=== PATIENT | female | born 1985 | race Asian ===

== ENCOUNTER 2022-06-12 19:55 | Emergency (ER) | payer BC, SELFPAY ==
--- NOTE | ~2022-06-12 | US_ITS ---
EXAMINATION: US OBSTETRICAL ULTRASOUND CLINICAL INFORMATION: Twin . Vaginal bleeding. COMPARISON: None available. LMP: 03/27/2022. Gestational age by maternal dates is 11 weeks. Estimated date of delivery by maternal dates is 01/01/2023. TECHNIQUE: Real time transabdominal imaging with M-mode Doppler. FINDINGS: There is a myometrial lesion with heterogeneous internal echogenicity along the uterine fundus, measuring 7.8 x 6.8 x 8 cm. This lesion appears associated with an additional exophytic, pedunculated component arising from the uterine fundus, measuring approximately 5.4 x 4.2 cm. There is a twin appears to be dichorionic and diamnionic. Twin A: Intrauterine gestational sac with visible embryo/fetus and cardiac activity. No overtly demonstrated significant subchorionic hemorrhage or hematoma. HR: 167 beats per minute. CRL (crown rump length): 4.16 cm (11 weeks and 1 day +/- 4 days). SUZANNE (estimated date of delivery): 12/31/2022 +/- 4 days. Twin B: Intrauterine gestational sac with visible embryo/fetus and cardiac activity. There is no significant subchorionic hemorrhage or hematoma. HR: 172 beats per minute. CRL (crown rump length): 3.61 cm (10 weeks and 4 days +/- 4 days). SUZANNE (estimated date of delivery): 01/04/2023 +/- 4 days. MATERNAL ADNEXA: The right maternal ovary measures 1.7 x 1.6 x 2 cm. No demonstrated abnormalities. The left maternal ovary measures 2.6 x 1.9 x 1.4 cm. There is a 1.5 cm corpus luteal cyst associated with the left ovary. No demonstrated additional significant maternal adnexal mass. No maternal pelvic ascites. US/US OB <= 14 wk fetus add gest IMPRESSION: 1. Twin intrauterine gestation with cardiac activity. Twin A: Ultrasound gestational age of 11 weeks and 1 day +/- 4 days. Estimated date of delivery 12/31/2022 +/- 4 days. Twin B: Ultrasound gestational age of 10 weeks and 4 days +/- 4 days. Estimated date of delivery 01/04/2023 +/- 4 days. 2. No overt subchorionic hemorrhage/hematoma. 3. There is a prominent myometrial lesion with heterogeneous internal echogenicity along the uterine fundus, measuring up to 8 cm. There is an additional exophytic, pedunculated component of this lesion measuring an additional 5.4 cm. This appearance is suggestive of underlying fibroid. 4. No demonstrated maternal adnexal mass or pelvic ascites.
--- NOTE | ~2022-06-12 | US_ITS ---
EXAMINATION: US OBSTETRICAL ULTRASOUND CLINICAL INFORMATION: Twin . Vaginal bleeding. COMPARISON: None available. LMP: 03/27/2022. Gestational age by maternal dates is 11 weeks. Estimated date of delivery by maternal dates is 01/01/2023. TECHNIQUE: Real time transabdominal imaging with M-mode Doppler. FINDINGS: There is a myometrial lesion with heterogeneous internal echogenicity along the uterine fundus, measuring 7.8 x 6.8 x 8 cm. This lesion appears associated with an additional exophytic, pedunculated component arising from the uterine fundus, measuring approximately 5.4 x 4.2 cm. There is a twin appears to be dichorionic and diamnionic. Twin A: Intrauterine gestational sac with visible embryo/fetus and cardiac activity. No overtly demonstrated significant subchorionic hemorrhage or hematoma. HR: 167 beats per minute. CRL (crown rump length): 4.16 cm (11 weeks and 1 day +/- 4 days). SUZANNE (estimated date of delivery): 12/31/2022 +/- 4 days. Twin B: Intrauterine gestational sac with visible embryo/fetus and cardiac activity. There is no significant subchorionic hemorrhage or hematoma. HR: 172 beats per minute. CRL (crown rump length): 3.61 cm (10 weeks and 4 days +/- 4 days). SUZANNE (estimated date of delivery): 01/04/2023 +/- 4 days. MATERNAL ADNEXA: The right maternal ovary measures 1.7 x 1.6 x 2 cm. No demonstrated abnormalities. The left maternal ovary measures 2.6 x 1.9 x 1.4 cm. There is a 1.5 cm corpus luteal cyst associated with the left ovary. No demonstrated additional significant maternal adnexal mass. No maternal pelvic ascites. US/US OB pelvic and transvaginal IMPRESSION: 1. Twin intrauterine gestation with cardiac activity. Twin A: Ultrasound gestational age of 11 weeks and 1 day +/- 4 days. Estimated date of delivery 12/31/2022 +/- 4 days. Twin B: Ultrasound gestational age of 10 weeks and 4 days +/- 4 days. Estimated date of delivery 01/04/2023 +/- 4 days. 2. No overt subchorionic hemorrhage/hematoma. 3. There is a prominent myometrial lesion with heterogeneous internal echogenicity along the uterine fundus, measuring up to 8 cm. There is an additional exophytic, pedunculated component of this lesion measuring an additional 5.4 cm. This appearance is suggestive of underlying fibroid. 4. No demonstrated maternal adnexal mass or pelvic ascites.
[2022-06-12 20:12] VITALS: BP 105/67; PULSE 85; RESP 16; TEMP 36.6; O2SAT 98; BMI 18.5
[2022-06-12 21:27] LABS: Appearance Urine Cloudy; Color Urine Yellow; Glucose Urine UA Negative (Negative); Leukocyte Esterase Urine Negative (Negative); Nitrite Urine Negative (Negative); Specific Gravity - Urine 1.025 (1.005-1.025); UMIC TRIGGER UACC YES; Urine Blood Moderate (2+) (Negative); Urine Ketones Negative (Negative); Urine Protein Trace mg/dL (Neg-Trace)
[2022-06-12 21:28] LABS: UPreg QC Valid YES; Urine Pregnancy POSITIVE (NEGATIVE)
[2022-06-12 21:40] LABS: Bacteria Urine 1+ (None Seen); Hyaline Casts Urine 0-2 /LPF (0-2); RBC Urine 0-2 /HPF (0-2); WBC Urine 0-5 /HPF (0-5)
--- NOTE | 2022-06-12 21:53 | ED_ITS ---
HPI - Female Genitourinary General Chief complaint: Urogenital-Female Stated complaint: 9 wks vaginal bleeding Time Seen by Provider: 06/12/22 21:40 Source: patient Mode of arrival: ambulatory Limitations: no limitations History of Present Illness HPI Narrative: Patient is a at approximately 9 weeks of gestational age by last menstrual period. Patient states that she believes she is approximately at 9 weeks based on her last menstrual period, states that she does not have any abdominal pain but is concerned that she has been seeing vaginal bleeding since yesterday. It started out as spotting and today got a bit heavier. Patient denies any abdominal cramping. Related Data Allergies Allergy/AdvReac Type Severity Reaction Status Date / Time No Known Allergies Allergy Verified 06/12/22 20:12 Review of Systems Review of Systems: Constitutional : No Weight loss, No Fever, No Chills, No Night Sweats, No Fatigue, No Malaise ENT/Mouth : No Hearing loss, No Ear Pain, No Nasal Congestion, No Sinus Pain, No Hoarseness, No sore throat, No Rhinorrhea, No Swallowing Difficulty Eyes: No Eye Pain, No Swelling, No Redness, No Foreign Body, No Discharge, No Vision Changes Cardiovascular : No Chest Pain, No SOB, No Dyspnea on Exertion, No Orthopnea, No Edema, No Palpitations Respiratory : No Cough, No Sputum, No Wheezing, No Smoke Exposure, No Dyspnea Gastrointestinal : No Nausea, No Vomiting, No Diarrhea, No Constipation, No abdominal Pain, No Hematochezia, No Melena Genitourinary : Complaining of vaginal bleeding, 9 weeks of gestational age per last menstrual period, No Dysuria, No Urinary Frequency, No Hematuria, No Urinary Incontinence, No Urgency, No Flank Pain, No Urinary Flow Changes, No Hesitancy Musculoskeletal : No joint pain, No Myalgias, No Joint Swelling Skin : No Skin Lesions, No rash Neuro : No Weakness, No Numbness, No Paresthesias, No Loss of Consciousness, No Dizziness, No Headache Psych : No Anxiety/Panic, No Depression, No SI/HI/AH/VH, No Social Issues, Heme/Lymph: No Bruising, No Bleeding,No Lymphadenopathy Endocrine : No Polyuria, No Polydipsia, No Temperature Intolerance PMFSH Social History Social History Advance Directives: No Advance Directives Information Provided: No Physical Exam Vital Signs: Vital Signs: Last Vital Signs Temp 98 F 06/12/22 22:23 Pulse 69 06/12/22 22:23 Resp 19 06/12/22 22:23 BP 101/62 06/12/22 22:23 Pulse Ox 98 06/12/22 22:23 O2 Del Method 06/12/22 22:23 BMI result Body Mass Index 18.5 Const: Other: Appearance: Alert. Oriented X3. No acute distress. Eyes: Pupils equal, round and reactive to light. ENT: Pharynx normal. Neck: Normal inspection. Neck supple. No lymph nodes noted. No crepitus CVS: Normal heart rate and rhythm. Pulses normal. Normal S1 and S2 Respiratory: No respiratory distress. Breath sounds normal. No Wheezing. No ra les Abdomen: Soft and nontender. No rigidity. No distention. : Scant amount of vaginal bleeding, there is small amount of mucus protruding through the cervix Skin: Skin warm and dry. Normal skin color. Normal skin turgor. Extremities: No lower extremity edema. No Lacerations. No Rash Neuro: Oriented X 3. No motor deficit. No sensory deficit. Moving all extremities. No slurred speech. CN 2 through 12 grossly intact Psych: calm, cooperative, normal affect Course Course Course Narrative: -all of patient's labs and ultrasound pending. -patient declined Tylenol, states that she does not have any significant abdominal discomfort -patient's blood type is A negative, per ultrasound, twin a is 11 weeks +1 day, twin B is 10 weeks +4 days -patient received 1 dose of RhoGAM 300 mcg -cervix is approximately 3 mm and passing small amount of bloody mucus -I discussed with the patient that this is a threatened , the may either continue or it could also end up in a spontaneous . Patient aware. -patient has an appointment pending for next week with her OB Gyne. I will provide the patient with her lab work and ultrasound results Medications Administered Discontinued Medications Generic Name Dose Route Start Last Admin Trade Name Freq PRN Reason Stop Dose Admin Rho Immune Globulin 300 mcg 06/13/22 00:55 06/13/22 01:14 Rho(D) Immune Globulin 300 Mcg Syringe IM 06/13/22 00:56 300 mcg ONCE ONE Administration Medical Decision Making Medical Decision Making MDM Narrative: Twin , mother Rh negative, received RhoGAM Lab Data MDM Lab Attestation statement: I reviewed the patient's lab results. 06/12/22 22:04 06/12/22 22:04 Labs: Lab Results 06/12/22 06/12/22 06/12/22 Range/Units 21:17 21:19 21:19 WBC (4.8-10.8) X10*3/uL RBC (4.20-5.50) X10*6/uL Hgb (12.0-16.0) g/dl Hct (37.0-47.0) % MCV (80.0-98.0) fL MCH (27.0-33.0) pg MCHC (31.0-35.0) g/dl RDW (11.0-16.0) % Plt Count (160-400) X10*3/uL MPV (9.4-12.3) fL Immature Gran % (Auto) (0.0-0.4) % Neut % (Auto) (45-73) % Lymph % (Auto) (20-40) % Zavala % (Auto) (2-11) % Eos % (Auto) (0-4) % Baso % (Auto) (0-2) % Lymph # (Auto) (1.2-4.9) X10*3/uL Z[place]ala # (Auto) (0.1-1.2) X10*3/uL Eos # (Auto) (0.0-0.4) X10*3/uL Baso # (Auto) (0.0-0.2) X10*3/uL Abs Immat Gran (auto) (0.00-0.03) X10*3/uL Absolute Neuts (auto) (2.0-8.3) x10*3/uL Absolute Nucleated RBC (0.0-0.012) X10*3/uL Nucleated RBC % (auto) (0.0-0.2) /100WBC Smear Tech's Comments Sodium (135-145) mmol/L Potassium (3.3-5.1) mmol/L Chloride (96-108) mmol/L Carbon Dioxide (22-29) mmol/L Anion Gap (12-20) BUN (9-16) mg/dL Creatinine (0.5-1.4) mg/dL Estim Creat Clear Calc Estimated GFR Random Glucose (60-115) mg/dL Calcium (8.4-10.2) mg/dL Total Bilirubin (0.0-1.0) mg/dL Direct Bilirubin (0.0-0.5) mg/dL AST (5-31) U/L ALT (0-31) U/L Alkaline Phosphatase (39-117) U/L Total Protein (6.5-8.0) g/dL Albumin (3.5-5.0) g/dL Beta HCG, Quant 757580 mIU/mL Urine Color Yellow Urine Appearance Cloudy Urine pH 6.0 (5.0-9.0) Ur Specific [place] 1.025 (1.005-1.025) Urine Protein Trace (Neg-Trace) mg/dL Urine Glucose (UA) Negative (Negative) mg/dL Urine Ketones Negative (Negative) mg/dL Urine Blood Moderate (2+) H (Negative) Urine Nitrite Negative (Negative) Ur Leukocyte Esterase Negative (Negative) Urine RBC 0-2 (0-2) /HPF Urine WBC 0-5 (0-5) /HPF Ur Squamous Epith Cells 6-10 (0-2) /HPF Urine Bacteria 1+ (None Seen) Hyaline Casts 0-2 (0-2) /LPF Urine Test POSITIVE H (NEGATIVE) Blood Type 06/12/22 06/12/22 06/12/22 Range/Units 22:04 22:04 22:04 WBC 7.6 (4.8-10.8) X10*3/uL RBC 5.30 (4.20-5.50) X10*6/uL Hgb 10.2 L (12.0-16.0) g/dl Hct 31.9 L (37.0-47.0) % MCV 60.2 L (80.0-98.0) fL MCH 19.2 L (27.0-33.0) pg MCHC 32.0 (31.0-35.0) g/dl RDW 14.4 (11.0-16.0) % Plt Count 193 (160-400) X10*3/uL MPV 10.3 (9.4-12.3) fL Immature Gran % (Auto) 0.3 (0.0-0.4) % Neut % (Auto) 71.4 (45-73) % Lymph % (Auto) 21.9 (20-40) % Zavala % (Auto) 5.5 (2-11) % Eos % (Auto) 0.8 (0-4) % Baso % (Auto) 0.1 (0-2) % Lymph # (Auto) 1.7 (1.2-4.9) X10*3/uL Z[place]ala # (Auto) 0.4 (0.1-1.2) X10*3/uL Eos # (Auto) 0.1 (0.0-0.4) X10*3/uL Baso # (Auto) 0.0 (0.0-0.2) X10*3/uL Abs Immat Gran (auto) 0.02 (0.00-0.03) X10*3/uL Absolute Neuts (auto) 5.4 (2.0-8.3) x10*3/uL Absolute Nucleated RBC 0.000 (0.0-0.012) X10*3/uL Nucleated RBC % (auto) 0.0 (0.0-0.2) /100WBC Smear Tech's Comments VERIFIED Sodium 137 (135-145) mmol/L Potassium 4.7 (3.3-5.1) mmol/L Chloride 106 (96-108) mmol/L Carbon Dioxide 24 (22-29) mmol/L Anion Gap 12 (12-20) BUN 12 (9-16) mg/dL Creatinine 0.55 (0.5-1.4) mg/dL Estim Creat Clear Calc 106.2 Estimated GFR > 60 Random Glucose 86 (60-115) mg/dL Calcium 9.1 (8.4-10.2) mg/dL Total Bilirubin 0.5 (0.0-1.0) mg/dL Direct Bilirubin 0.2 (0.0-0.5) mg/dL AST 17 (5-31) U/L ALT 13 (0-31) U/L Alkaline Phosphatase 52 (39-117) U/L Total Protein 6.8 (6.5-8.0) g/dL Albumin 3.9 (3.5-5.0) g/dL Beta HCG, Quant mIU/mL Urine Color Urine Appearance Urine pH (5.0-9.0) Ur Specific [place] (1.005-1.025) Urine Protein (Neg-Trace) mg/dL Urine Glucose (UA) (Negative) mg/dL Urine Ketones (Negative) mg/dL Urine Blood (Negative) Urine Nitrite (Negative) Ur Leukocyte Esterase (Negative) Urine RBC (0-2) /HPF Urine WBC (0-5) /HPF Ur Squamous Epith Cells (0-2) /HPF Urine Bacteria (None Seen) Hyaline Casts (0-2) /LPF Urine Test (NEGATIVE) Blood Type A Negative Independent Interpretation I performed an independent interpretation of an: Ultrasound (Intrauterine , Twins) Radiology Impression Discussion of test interpretation with radiology: I have reviewed the radiologist's reading. Radiologist Impression: CLINICAL INFORMATION:? Twin . Vaginal bleeding. COMPARISON:? None available.? LMP: 03/27/2022. Gestational age by maternal dates is 11 weeks. Estimated date of delivery by maternal dates is 01/01/2023. TECHNIQUE: Real time transabdominal imaging with M-mode Doppler. ? FINDINGS: There is a myometrial lesion with heterogeneous internal echogenicity along the uterine fundus, measuring 7.8 x 6.8 x 8 cm. This lesion appears associated with an additional exophytic, pedunculated component arising from the uterine fundus, measuring approximately 5.4 x 4.2 cm. There is a twin appears to be dichorionic and diamnionic. Twin A: Intrauterine gestational sac with visible embryo/fetus and cardiac activity. No overtly demonstrated significant subchorionic hemorrhage or hematoma. HR:? 167 beats per minute. CRL (crown rump length): ? 4.16 cm (11 weeks and 1 day +/- 4 days). SUZANNE (estimated date of delivery):? 12/31/2022 +/- 4 days. ? Twin B: Intrauterine gestational sac with visible embryo/fetus and cardiac activity.? There is no significant subchorionic hemorrhage or hematoma. HR:? 172 beats per minute. CRL (crown rump length): ? 3.61 cm (10 weeks and 4 days +/- 4 days). SUZANNE (estimated date of delivery):? 01/04/2023 +/- 4 days. ? MATERNAL ADNEXA:? The right maternal ovary measures 1.7 x 1.6 x 2 cm.? No demonstrated abnormalities. The left maternal ovary measures 2.6 x 1.9 x 1.4 cm.? There is a 1.5 cm corpus luteal cyst associated with the left ovary. No demonstrated additional significant maternal adnexal mass.? No maternal pelvic ascites. US/US OB pelvic and transvaginal IMPRESSION: 1. Twin intrauterine gestation with cardiac activity. Twin A: Ultrasound gestational age of? 11 weeks and 1 day +/- 4 days. Estimated date of delivery 12/31/2022 +/- 4 days. Twin B: Ultrasound gestational age of 10 weeks and 4 days +/- 4 days. Estimated date of delivery 01/04/2023 +/- 4 days. ? 2. No overt subchorionic hemorrhage/hematoma. ? 3. There is a prominent myometrial lesion with heterogeneous internal echogenicity along the uterine fundus, measuring up to 8 cm. There is an additional exophytic, pedunculated component of this lesion measuring an additional 5.4 cm. This appearance is suggestive of underlying fibroid. ? 4. No demonstrated maternal adnexal mass or pelvic ascites. Discharge Plan Discharge Clinical Impression: Vaginal bleeding during Patient Disposition: Home, Self-Care Instructions: Threatened Miscarriage (ED) Additional Instructions: If you have any significant vaginal bleeding or abdominal pain, please return immediately to the emergency room. 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 If you have any worsening or new symptoms, please return to the emergency room or call 911
[2022-06-12 22:13] LABS: Basophils Percent Auto 0.1 % (0-2); Eosinophils Absolute Auto 0.1 X10*3/uL (0.0-0.4); Eosinophils Percent Auto 0.8 % (0-4); Hematocrit 31.9 % (37.0-47.0); Hemoglobin 10.2 g/dl (12.0-16.0); Imm Gran Abs Auto 0.02 X10*3/uL (0.00-0.03); Imm Gran Pct Auto 0.3 % (0.0-0.4); Lymphocytes Absolute Auto 1.7 X10*3/uL (1.2-4.9); Lymphocytes Percent Auto 21.9 % (20-40); Mean Corpuscular Hemoglobin 19.2 pg (27.0-33.0); Mean Platelet Volume 10.3 fL (9.4-12.3); Monocytes Absolute Auto 0.4 X10*3/uL (0.1-1.2); Monocytes Percent Auto 5.5 % (2-11); Neutrophils Absolute Auto 5.4 x10*3/uL (2.0-8.3); Neutrophils Percent Auto 71.4 % (45-73); Platelet Count 193 X10*3/uL (160-400); Red Cell Distribution Width 14.4 % (11.0-16.0); White Blood Count 7.6 X10*3/uL (4.8-10.8)
[2022-06-12 22:23] VITALS: BP 101/62; PULSE 69; RESP 19; TEMP 36.6; O2SAT 98
[2022-06-12 22:34] LABS: Mean Corpuscular Volume 60.2 fL (80.0-98.0)
[2022-06-12 22:35] LABS: MANUAL DIFF FLAG SCAN; SCAN SMEAR FLAG 1; SLIDE REVIEW VERIFIED
[2022-06-12 22:36] LABS: Alanine Aminotransferase 13 U/L (0-31); Albumin Level 3.9 g/dL (3.5-5.0); Alkaline Phosphatase 52 U/L (39-117); Anion Gap 12 (12-20); Aspartate Amino Transferase 17 U/L (5-31); Bilirubin Direct 0.2 mg/dL (0.0-0.5); Bilirubin Total 0.5 mg/dL (0.0-1.0); Blood Urea Nitrogen 12 mg/dL (9-16); Calcium 9.1 mg/dL (8.4-10.2); Carbon Dioxide 24 mmol/L (22-29); Chloride 106 mmol/L (96-108); Creatinine Clr Calc Pharmacy 106.2; Estimated Glomerular Filt Rate > 60; Glucose Random 86 mg/dL (60-115); Potassium 4.7 mmol/L (3.3-5.1); Sodium 137 mmol/L (135-145); Total Protein 6.8 g/dL (6.5-8.0)
[2022-06-13] MEDS: Rho(D) Immune Globulin 300 MCG SYRINGE IM (01:14)
--- NOTE | 2022-06-13 02:12 | PC.NURSE ---
Pt. resting on bed in room. Pt denies any discomfort. Significant other is at bedside. Pelvic exam performed by . Pt. is RH negative. Rhogam administered per JUL. Pt. given labs and paperwork to follow-up with her OB with whom she has an appointment on 06/19/2022.
== END 2022-06-13 02:21 | disposition home or self-care (01) ==
PROVIDERS: Emergency Provider Emergency Medicine; PCP Family Medicine
DX: O20.9 Hemorrhage in early pregnancy, unspecified (principal); Z3A.11 11 weeks gestation of pregnancy; Z37.2 Twins, both liveborn; O09.521 Supervision of elderly multigravida, first trimester
CPT/HCPCS: 36415; 76801; 76802; 76817; 80048; 80076; 81001; 81025; 84702; 85025; 86900; 86901; 96372; 99283; 99284; J2790

== ENCOUNTER 2023-04-26 12:06 | Emergency (ER) | payer BC, SELFPAY ==
--- NOTE | 2023-04-26 | ECG_ITS ---
Test Reason : CP Blood Pressure : / mmHG Vent. Rate : 111 BPM Atrial Rate : 111 BPM P-R Int : 166 ms QRS Dur : 070 ms QT Int : 314 ms P-R-T Axes : 037 029 010 degrees QTc Int : 427 ms Sinus tachycardia Possible Left atrial enlargement Borderline ECG No previous ECGs available Referred By: Generic ED Physician Electronically Signed By:SWETHA DAWKINS MD
[2023-04-26 12:29] VITALS: BP 124/84; PULSE 111; RESP 16; TEMP 37.1; O2SAT 99; BMI 25.4
--- NOTE | 2023-04-26 12:35 | ED.CHESTPAIN ---
HPI - Chest Pain General Chief Complaint: Chest Pain Stated Complaint: chest pain Time Seen by Provider: 04/26/23 16:57 Source: patient Mode of arrival: ambulatory History of Present Illness HPI narrative: Pt is a 37yo female who is presenting to the ED for chest pain. Pt states the pain originated in her lower abdomen and radiated up her mid-chest. She states it started at 9:30 and lasted about an hour before spontaneously resolving. She notes that now she has general body aches, chills, lightheadedness, and nausea. She denies dysuria, vomiting or diarrhea, or difficulty breathing. She states she did have some palpitations while she was experiencing the chest pain. Notes a hx of uterine fibroids and pregnancies with similar sx. Related Data Allergies Allergy/AdvReac Type Severity Reaction Status Date / Time No Known Allergies Allergy Verified 04/26/23 12:29 Review of Systems Constitutional: Constitutional: Reports body ache(s), Reports chills, Denies fever(s) and Reports headache(s) (dull) Eyes: Eyes: Denies change in vision and Denies diplopia ENT: Reports dizziness and Reports headache(s) (dull) Cardiovascular: Cardiovascular: Reports chest pain and Denies dyspnea Respiratory: Respiratory: Denies cough and Denies dyspnea Gastrointestinal: Gastrointestinal: Reports abdominal pain (left lower quadrant), Denies constipation, Denies diarrhea, Reports nausea and Denies vomiting Genitourinary: Genitourinary: Denies abnormal vaginal bleeding, Denies difficulty voiding, Denies dysuria and Denies vaginal discharge Musculoskeletal: Musculoskeletal: Denies back pain Neurologic: Reports dizziness and Reports headache(s) (dull) [facility] Social History Social History Smoked in Last 30 Days: No Use of substances other than those prescribed or required for medical reasons: No Advance Directives: No Advance Directives Information Provided: Yes Physical Exam Vital Signs: Vital Signs: Last Vital Signs Temp 98.2 F 04/26/23 17:21 Pulse 96 04/26/23 17:21 Resp 16 04/26/23 17:21 BP 121/79 04/26/23 17:21 Pulse Ox 96 04/26/23 17:21 O2 Del Method Room Air 04/26/23 17:21 BMI result Body Mass Index 25.4 Const: General: cooperative, comfortable, no acute distress, alert and awake Orientation/consciousness: patient oriented x3 HEENT: Head: Yes normocephalic and Yes atraumatic Ears: hearing grossly normal bilaterally General nose exam: Normal external nose present Eyes: General: appearance normal, both eyes and all related structures Resp: Effort & Inspection: normal respiratory effort and able to speak in complete sentences Auscultation: clear to auscultation bilaterally Cardio: Rate: regular rate Rhythm: regular rhythm Heart sounds: S1 normal heart sound present and S2 normal heart sound present GI: Inspection: Yes normal to inspection and No distended Palpation (GI): not firm, Tenderness to palpation present (GI) in the LLQ, no guarding and not rigid Auscultation: normal bowel sounds Neuro: General: patient oriented x3 Cranial nerves: Yes CN's II-XII intact bilaterally Gait exam (Neuro): Normal gait present Motor exam (neuro): 5/5 motor strength present throughout Course Course Course Narrative: This is a rapid medical exam: Additional HPI, ROS, PE not included below will be deferred to primary provider. Patient is a 37-year-old female presenting to the ED with complaint of chest pain, abdominal pain and dizziness since this morning. States when she had similar symptoms previously she was . States chest pain is intermittent. Plan: EKG, labs Medical Decision Making Medical Decision Making MDM Narrative: 37-year-old female presents for evaluation of lower abdominal pain that radiates up into her chest. She had no diagnosed medical history, no risk factors for ACS. EKG is nonischemic. Troponin negative, patient does have a mild microcytic anemia that is slightly improved when compared to baseline. A patient's chemistries without any significant abnormalities. BUN is slightly above normal, random glucose is slightly elevated but no evidence of DKA. ALT is just barely above normal. Patient denies any urinary symptoms. She is unable to give a UA at this time. However given that she has no symptoms, UTI a year to be less likely. She has no flank pain to suggest obstructive uropathy. She has not been vomiting, is tolerating p.o., she is still having bowel movements, bowel obstruction is less likely. She has no leukocytosis or diarrhea to suggest infectious colitis. Patient may has viral etiology of her abdominal/chest pain. Discussed possible pelvic ultrasound to evaluate for uterine fibroids ovarian cyst which the patient declines this time as she reports that she can follow up with PCP which I feel is appropriate Differential Diagnosis Differential Diagnoses: The differential diagnosis associated with the presentation includes (anxiety, uterine fibroids, well visit, angina, GERD) Lab Data MDM Lab Attestation statement: I reviewed the patient's lab results. No leukocytosis, mild microcytic anemia slight improvement compared to baseline. BUN is slightly elevated to 20. No significant lab abnormalities. Troponin negative 04/26/23 13:33 04/26/23 13:33 Labs: Lab Results 04/26/23 Range/Units 13:33 WBC 10.5 (4.8-10.8) X10*3/uL RBC 6.30 H (4.20-5.50) X10*6/uL Hgb 11.8 L (12.0-16.0) g/dl Hct 38.8 D (37.0-47.0) % MCV 61.6 L (80.0-98.0) fL MCH 18.7 L (27.0-33.0) pg MCHC 30.4 L (31.0-35.0) g/dl RDW 17.1 H (11.0-16.0) % Plt Count 217 (160-400) X10*3/uL MPV 10.5 (9.4-12.3) fL Immature Gran % (Auto) 0.3 (0.0-0.4) % Neut % (Auto) 85.5 H (45-73) % Lymph % (Auto) 10.1 L (20-40) % [place] % (Auto) 3.5 (2-11) % Eos % (Auto) 0.5 (0-4) % Baso % (Auto) 0.1 (0-2) % Lymph # (Auto) 1.1 L (1.2-4.9) X10*3/uL [place] # (Auto) 0.4 (0.1-1.2) X10*3/uL Eos # (Auto) 0.1 (0.0-0.4) X10*3/uL Baso # (Auto) 0.0 (0.0-0.2) X10*3/uL Abs Immat Gran (auto) 0.03 (0.00-0.03) X10*3/uL Absolute Neuts (auto) 9.0 H (2.0-8.3) x10*3/uL Absolute Nucleated RBC 0.000 (0.0-0.012) X10*3/uL Nucleated RBC % (auto) 0.0 (0.0-0.2) /100WBC Smear Tech's Comments VERIFIED PT 11.8 (11.1-13.3) SEC INR 1.0 (0.9-1.1) Sodium 137 (135-145) mmol/L Potassium 4.0 (3.3-5.1) mmol/L Chloride 107 (96-108) mmol/L Carbon Dioxide 24 (22-29) mmol/L Anion Gap 10 L (12-20) BUN 20 H (9-16) mg/dL Creatinine 0.58 (0.5-1.4) mg/dL Estim Creat Clear Calc 104.7 Estimated GFR > 60 Random Glucose 131 H (60-115) mg/dL Calcium 9.1 (8.4-10.2) mg/dL Total Bilirubin 0.6 (0.0-1.0) mg/dL AST 24 (5-31) U/L ALT 32 H (0-31) U/L Alkaline Phosphatase 107 (39-117) U/L Troponin I High Sens < 2.7 (<3.5-17.0) ng/L Total Protein 8.0 (6.5-8.0) g/dL Albumin 4.4 (3.5-5.0) g/dL Beta HCG, Quant < 2 mIU/mL COVID-19 ([facility]ARRELL) Negative (Negative) COVID-19 Clin Com See Note Influenza Type A (ALICIA) Negative (Negative) Influenza Type B (ALICIA) Negative (Negative) Influenza A & B Note See Note Independent Interpretation I performed an independent interpretation of an: EKG (Sinus tachycardia rate of 111 beats minute. No ischemic changes.) Discharge Plan Discharge Clinical Impression: Atypical chest pain Patient Disposition: Home, Self-Care Instructions: Chest Pain (ED) Additional Instructions: Your workup in the emergency department today was reassuring This includes your EKG, blood work, you are not You do not have COVID, influenza, RSV Follow-up with your primary doctor Return for new or worsening symptoms Interventions: ED Discharge Assessment Last Done: 04/26/23 17:23 Discharge Date/Time: 04/26/23 17:24
[2023-04-26 13:43] LABS: Basophils Percent Auto 0.1 % (0-2); Eosinophils Absolute Auto 0.1 X10*3/uL (0.0-0.4); Eosinophils Percent Auto 0.5 % (0-4); Hematocrit 38.8 % (37.0-47.0); Hemoglobin 11.8 g/dl (12.0-16.0); Imm Gran Abs Auto 0.03 X10*3/uL (0.00-0.03); Imm Gran Pct Auto 0.3 % (0.0-0.4); Lymphocytes Absolute Auto 1.1 X10*3/uL (1.2-4.9); Lymphocytes Percent Auto 10.1 % (20-40); MANUAL DIFF FLAG SCAN; Mean Corpuscular HGB Conc 30.4 g/dl (31.0-35.0); Mean Corpuscular Hemoglobin 18.7 pg (27.0-33.0); Mean Platelet Volume 10.5 fL (9.4-12.3); Monocytes Absolute Auto 0.4 X10*3/uL (0.1-1.2); Monocytes Percent Auto 3.5 % (2-11); Neutrophils Percent Auto 85.5 % (45-73); PLT CLUMP 1; Red Cell Distribution Width 17.1 % (11.0-16.0); SCAN SMEAR FLAG 1
[2023-04-26 13:48] LABS: Mean Corpuscular Volume 61.6 fL (80.0-98.0); Platelet Count 217 X10*3/uL (160-400); White Blood Count 10.5 X10*3/uL (4.8-10.8)
[2023-04-26 13:50] LABS: Prothrombin Time 11.8 SEC (11.1-13.3)
[2023-04-26 13:57] LABS: COVID-19 Test Negative (Negative); IDNOW Serial# 08D9AD1C; IDNOW Serial# 9DB6401D; Influenza A Negative (Negative); Influenza B2 Negative (Negative)
[2023-04-26 14:00] LABS: Alanine Aminotransferase 32 U/L (0-31); Albumin Level 4.4 g/dL (3.5-5.0); Alkaline Phosphatase 107 U/L (39-117); Anion Gap 10 (12-20); Aspartate Amino Transferase 24 U/L (5-31); Bilirubin Total 0.6 mg/dL (0.0-1.0); Blood Urea Nitrogen 20 mg/dL (9-16); Calcium 9.1 mg/dL (8.4-10.2); Carbon Dioxide 24 mmol/L (22-29); Chloride 107 mmol/L (96-108); Creatinine Clr Calc Pharmacy 104.7; Estimated Glomerular Filt Rate > 60; Glucose Random 131 mg/dL (60-115); HCG Quantitative < 2 mIU/mL; Sodium 137 mmol/L (135-145); Troponin-I High Sensitivity < 2.7 ng/L (<3.5-17.0)
[2023-04-26 14:09] LABS: SLIDE REVIEW VERIFIED
[2023-04-26 17:21] VITALS: BP 121/79; PULSE 96; RESP 16; TEMP 36.8; O2SAT 96
--- NOTE | 2023-04-26 17:23 | PC.NURSE ---
patient a&ox3, vss, pt states her chest discomfort has resolved, labs previously drawn in triage, ekg done in triage all wnl, pt to be discharged.
== END 2023-04-26 17:24 | disposition home or self-care (01) ==
PROVIDERS: Registered Nurse Emergency; Emergency Provider Emergency Medicine; PCP Family Medicine
DX: R07.89 Other chest pain (principal); M79.10 Myalgia, unspecified site; R00.0 Tachycardia, unspecified; R11.2 Nausea with vomiting, unspecified; R42 Dizziness and giddiness; Z11.52 Encounter for screening for COVID-19; Z20.822 Contact with and (suspected) exposure to COVID-19; Z79.899 Other long term (current) drug therapy
CPT/HCPCS: 80053; 84484; 84702; 85025; 85610; 87502; 87635; 93005; 99283; 99285

== ENCOUNTER → 2023-04-26 12:13 | Outpatient (BNV) | payer BC, SELFPAY | PROVIDERS: Emergency Provider Emergency Medicine; PCP Family Medicine; Visit Provider Internal Medicine Cardiovascular Disease | DX: R00.0 Tachycardia, unspecified (principal) | CPT/HCPCS: 93010 ==

== ENCOUNTER 2024-06-24 11:24 | Emergency (ER) | payer BC, SELFPAY ==
[2024-06-24 12:04] VITALS: BP 123/83; PULSE 88; RESP 18; TEMP 36.6; O2SAT 98; BMI 14.2
--- NOTE | 2024-06-24 12:05 | ED.URI ---
HPI - URI/Sore Throat General Chief Complaint: Upper Respiratory Symptoms Stated Complaint: Sore throat, headache Time Seen by Provider: 06/24/24 14:21 Source: patient and RN notes reviewed Mode of arrival: ambulatory Limitations: no limitations History of Present Illness ED Provider: Licha Rehman PA-C HPI Narrative: This is a 39-year-old female, with no known medical problems, who presents emergency department with complaints of sore throat, cough, congestion, subjective fevers and chills, productive cough and headache x3 days. Patient states that her is sick with similar symptoms. She states she feels as though her symptoms are improving since the onset. Denies any chest pain or shortness of breath. She has been taking [id number] cold medication with she has provided her with some relief. No other complaints or concerns at this time. MD elicited complaint: fever (Subjective), cough, sore throat and nasal congestion Onset (ago): day(s) Consistency: improved Able to tolerate fluids by mouth: Yes Exacerbating factors: nothing Relieving factors: OTC cold medicine Context: sick contacts Associated symptoms: nasal congestion, sore throat and cough Treatments prior to arrival: cold medicine Related Data Allergies Allergy/AdvReac Type Severity Reaction Status Date / Time No Known Allergies Allergy Verified 06/24/24 12:07 Review of Systems Review of Systems: Yes all other systems are reviewed and are negative Constitutional: Constitutional: Reports as per [facility] Social History Social History Advance Directives: No Advance Directives Information Provided: Yes Physical Exam Vital Signs: Vital Signs: Last Vital Signs Temp 97.9 F 06/24/24 14:30 Pulse 88 06/24/24 14:30 Resp 18 06/24/24 14:30 BP 123/83 06/24/24 14:30 Pulse Ox 98 06/24/24 14:30 O2 Del Method Room Air 06/24/24 12:04 BMI result Body Mass Index 14.2 Const: General: cooperative, comfortable and no acute distress Orientation/consciousness: patient oriented x3 Limitations: no limitations HEENT: Head: Yes normal to inspection, Yes normocephalic and Yes atraumatic Ears: hearing grossly normal bilaterally General nose exam: Normal external nose present Face and sinus: Yes normal facial exam Mouth: Normal oral and palatal mucosa present, oropharynx normal and moist mucous membranes Throat: Yes posterior oropharynx normal Eyes: General: appearance normal, both eyes and all related structures Eyelids: Yes eyelids normal Conjunctivae: conjunctivae normal Sclerae: sclerae normal Pupils: Equal, round and reactive pupils present EOM: EOMs intact bilaterally Neck: Neck: Yes normal visual inspection, Yes full ROM and Yes no lymphadenopathy Lymphatic: no lymphadenopathy noted Chest: Chest palpation & inspection: normal inspection of the chest Resp: Effort & Inspection: normal respiratory effort and able to speak in complete sentences Auscultation: clear to auscultation bilaterally, no crackles, no rales, no rhonchi and no wheezes Cardio: Rate: regular rate Rhythm: regular rhythm Heart sounds: S1 normal heart sound present and S2 normal heart sound present GI: Inspection: Yes normal to inspection Skin: General skin exam: no rashes or lesions noted Trauma: no lacerations or abrasions Wounds: no wounds Neuro: General: patient oriented x3 and moves all extremities Cranial nerves: Yes Equal, round and reactive pupils present Extrem: General: Yes normal to inspection Right upper extremity: normal to inspection Left upper extremity: normal to inspection Right lower extremity: normal to inspection Left lower extremity: normal to inspection Medical Decision Making Medical Decision Making MDM Narrative: This is a 39-year-old female who presents emergency department with complaints of subjective fevers, chills, cough, congestion, and headaches x3 days. On arrival, vital signs within normal limits. She is speaking and false sentences under no acute distress. Lungs are clear to auscultation bilaterally. Examination normal. Viral swabs were obtained, she tested positive for influenza. Discussed starting Tamiflu however patient is out of the window as she has been sick for 4 days. She states that her symptoms have improved. Discussed get plenty of fluids, getting plenty of rest. She has no chest pain or shortness of breath. Given strict return precautions. Patient stable for discharge Differential Diagnosis Differential Diagnoses: The differential diagnosis associated with the presentation includes Flu, COVID, RSV, strep Admission/Observation Consideration of admission/observation: Escalation of care including admission/observation considered Lab Data MDM Lab Attestation statement: I reviewed the patient's lab results. Influenza a positive Labs: Lab Results 06/24/24 06/24/24 Range/Units 12:57 12:58 Influenza Type A (PCR) POSITIVE A (Negative) Influenza Type B (PCR) NEGATIVE (Negative) RSV RNA Qual (PCR) NEGATIVE (Negative) SARS-CoV-2 RNA (RT-PCR) NEGATIVE (Negative) S. pyogenes GrpA ALICIA Negative (Negative) Radiology Impression Discussion of test interpretation with radiology: I have reviewed the radiologist's reading. External Record Review External record reviewed: Inpatient record, Office record, Outpatient record, Prior outpatient labs, Prior outpatient radiology, Primary care record and Outside ED record Discharge Plan Discharge Clinical Impression: Influenza A Patient Disposition: Home, Self-Care Instructions: Influenza (ED) Additional Instructions: You were seen in the emergency room and tested positive for influenza A. Please drink plenty of fluids get plenty of rest. Alternate between ibuprofen and or Tylenol as needed for fevers and pain. If any new or worsening symptoms occur including but not limited to chest pain, shortness of breath, please seek emergent care. Stand Alone Forms: Work/School Release Interventions: ED Discharge Assessment Last Done: 06/24/24 14:30 Discharge Date/Time: 06/24/24 14:35 Print Language: Amharic
[2024-06-24 13:34] LABS: IDNOW Serial# 58CA691E; Strep A Nucleic Acid Negative (Negative)
[2024-06-24 13:59] LABS: Influenza A PCR POSITIVE (Negative); Influenza B PCR NEGATIVE (Negative); Resp Syncy Virus RNA Qual PCR NEGATIVE (Negative); SARS COV2 PCR INHOUSE NEGATIVE (Negative)
[2024-06-24 14:30] VITALS: BP 123/83; PULSE 88; RESP 18; TEMP 36.6; O2SAT 98
--- OUTSIDE RECORDS SUMMARY | 2024-06-24 15:30 | XMS_ITS | Encounter Summary ---
Author Organization [facility] Address [address] [place] [address] Care Team Providers Care Business Development Intern Name Role Phone Samantha Winslow MD Primary Care Provider Reason for Referral * Consultation (Routine) - Authorized Specialty Diagnoses / Procedures Referred By Kami strickland Referred To Contact Gastroenterology Diagnoses Hemorrhoids, unspecified hemorrhoid type Andreina Layton PA [address] [place] [address] [facility] G[facility] [address] [address] Referral ID Status Reason Start Date Expiration Date Visits Requested Visits Authorized [id number] Authorized Specialty Services Required 06/16/2024 06/16/2025 1 1 Scheduling Instructions Do not schedule with [facility] Reason for Visit * Reason Comments Referral Referral for hemorrh oids-Patient had surgery last 03/18/2024 for fibroids. Encounter Details Date Type Department Care Team ([facility] st Contact Info) Description 06/16/2024 3:30 PM EST Office Visit Adult Medicine - [place] [address] [place] [address] Andreina Layton PA [address] [place] [address] Hemorrhoids, unspecified hemorrhoid type (Primary Dx); Rash Social History Tobacco Use Types Packs/Day Years Used Date Smoking Tobacco: Never Smokeless Tobacco: Never Tobacco Cessation:Counseling Given: Not Answered Alcohol Use Standard Drinks/Week Comments Not Currently 0 (1 standard drink = 0.6 oz pur e alcohol) Housing Instability Answer Date Recorde d Are you worried that in the next 2 months you may not have stable housing? No 06/12/2024 Food Access & Nutrition Answer Date Rec orded Do you have access to a vari ety of food including fruits and vegetables? Yes 06/12/2024 Access to Healthcare Answer Date Record ed Within the last 3 months, ho w many times did you visit the emergency department for your medical care? 0 06/12/2024 Health Literacy Answer Date Recorded How often do you need to hav e someone help you when you read instructions, pamphlets, or other written material from your doctor or pharmacy? Never 06/12/2024 Caregiver: How often do you need to have someone help you when you read instructions, pamphlets, or other written material from your doctor or pharmacy? Not on file 06/12/2024 Financial Risk Answer Date Recorded How hard is it for you to pa y for the very basics like food, housing, medical care, and air conditioning / heating? Not very hard 06/12/2024 Transportation Answer Date Recorded Has the lack of transportati on kept you from meetings, work, or from getting things needed for daily living? No Has the lack of transportati on kept you from medical appointments or from getting medications? No 06/12/2024 Social Isolation Answer Date Recorded How often do you feel lonely or isolated from th ose around you? Never 06/12/2024 Food Risk Answer Date Recorded Within the past 12 months we worried whether our food would run out before we got money to buy more. Never true 06/12/2024 Within the past 12 months th e food we bought just didn't last and we didn't have money to get more. Never true 06/12/2024 Dependent Care Answer Date Recorded Do you need help finding or paying for care for your loved ones. For example, childhood development teacher or elderly care for an older adult? No 06/12/2024 Education Answer Date Recorded Do you think completing more education or training, like finishing a GED, going to college, or learning a trade, would be helpful for you? No 06/12/2024 Employment and Income Answer Date Recor ded During the last four weeks, have you been actively looking for work? No 06/12/2024 Living Situation Answer Date Recorded What is your living situation? 0 06/12/2024 Sex and Gender Information Value Date Recorded Sex Assigned at Female 05/06/2024 10:48 PM EST Gender Identity Female 05/06/2024 10:48 PM EST Sexual Orientation Straight 05/06/2024 10 :48 PM EST Job Start Date Occupation Industry Not on file Not on file Not on file documented as of this encounter Last Filed Vital Signs Vital Sign Reading Time Taken Comments Blood Pressure 100/70 06/16/2024 3:28 PM EST Pulse 80 06/16/2024 3:28 PM EST Temperature 36.6 ??C (97.8 ??F) 06/16/2024 3:28 PM ES T Respiratory Rate - - Oxygen Saturation - - Inhaled Oxygen Concentration - - Weight 60.8 kg (134 lb) 06/16/2024 3:28 PM EST Height 154.9 cm (5' 1 ) 06/16/2024 3:28 PM EST Body Mass Index 25.32 06/16/2024 3:28 PM EST documented in this encounter Ordered Prescriptions Prescription Sig Dispensed Refills Start Date End Da te hydrocortisone 1 % ointmentIndications:Rash Apply topically 2 (two) times a day. 30 g 06/16/2024 06/16/2025 documented in this encounter Progress Notes * ZAHRAA Calvert - 06/16/2024 3:30 PM EST CHIEF COMPLAINT: Referral (Referral for hemorrhoids-Patient had surgery last 03/18/2024 for fibroids. ) IDENTIFIER:Nik Quinones is a 39 y.o. old female. HPI: 39-year-old female presenting with chief complaint of hemorrhoids ongoing for past 2 years. Onset began with , states she also had a large fibroid that caused a lot of constipation. She has tried pvnq-rae-tiayhdx hemorrhoid cream which she states only helps with the discomfort. The hemorrhoid does protrude out and she is unable to reduce it. She has about 2 bowel movements a day that vary in consistency ; mostly soft but occasionally will have hard stools or diarrhea. She denies any blood in stool, but describes a stinging pain when having a bowel movement. She admits she does not drink much water but eats a balanced diet that includes a variety of foods. She does think that drinking Coke may contribute to symptoms of constipation. States she experiences discomfort when having a bowel movement after drinking it. She does state that she walks a lot for her job and sometimes walks to and from work. Also vito had surgery in February of 2024, she did not have a bowel movement for 2-3 days and was prescribed laxative. She was able to go to the bathroom after the third day, states she took the laxatives for the prescribed amount of time then stopped, but still feels constipated sometimes. Reports no symptoms of constipation currently. ROS: All negative except what is in HPI PAST MEDICAL HISTORY: Past Medical History: Diagnosis Date Anemia DX:Anemia Beta thalassemia trait DX:Beta thalassemia trait Fibroids Immunization, BCG DX:Immunization, BCG; COMMENT: as a child Type A blood, Rh negative DX:Type A blood, Rh negative Uterine fibroid DX:Uterine fibroid; COMMENT: noted on u/s 06/12/22 ACTIVE PROBLEM LIST Patient Active Problem List Diagnosis Date Noted Rh negative, antepartum 04/10/2024 Beta thalassemia trait 06/21/2022 Dichorionic diamniotic twin gestation 06/21/2022 Advanced maternal age, 1st , first trimester 06/21/2022 AMA (advanced maternal age) primigravida 35+, second trimester 06/21/2022 Uterine fibroid in 06/21/2022 SOCIAL HISTORY: Pediatric History Patient Parents Not on file Other Topics Concern Not on file Social History Narrative 06/2022: Lives with - Dzsilviano. Denies DV. No pets. Social History Tobacco Use Smoking status: Never Smokeless tobacco: Never Substance Use Topics Alcohol use: Not Currently Drug use: Never FAMILY HISTORY: Family History Problem Relation Name Age of Onset Diabetes Mother Stroke Mother Depression Mother Arthritis Mother Other (Other: gestational diabetes) Sister Other (Other: factor 5) Father Asthma Father Diabetes Father Other (Other: austism) Brother Seizures Brother Breast cancer Neg Hx Ovarian cancer Neg Hx Colon cancer Neg Hx Pancreatic cancer Neg Hx Kidney cancer Neg Hx Cancer of Small Bowel Neg Hx Uterine cancer Neg Hx MEDICATIONS: There are no discontinued medications. ACTIVE MEDICATIONS: Outpatient Medications Marked as Taking for the 06/16/24 encounter (Office Visit) with ZAHRAA Calvetr Medication Sig Dispense Refill cyanocobalamin (VITAMIN B-12) 1,000 mcg tablet Take 1 tablet (1,000 mcg total) by mouth 1 (one) time each day. PNV no.153/FA/om3/dha/epa/fish ( GUMMIES ORAL) ZV-[id number]-[id number]-[place]-3 ( Gummies/DHA & FA) 0.4-32.5 MG Chew Tab- Take 2 Tablets by mouth daily. ALLERGIES: Allergies Allergen Reactions Other seasonal PHYSICAL EXAM: Blood pressure 100/70, pulse 80, temperature 36.6 ??C (97.8 ??F), temperature source Temporal, height 1.549 m (61 ), weight 60.8 kg (134 lb), last menstrual period 06/09/2024. Wt Readings from Last 5 Encounters: 06/16/24 60.8 kg (134 lb) 05/14/24 60.5 kg (133 lb 6.4 oz) 09/17/23 60.9 kg (134 lb 3.2 oz) 09/06/22 52.7 kg (116 lb 3.2 oz) 08/09/22 52.8 kg (116 lb 6.4 oz) Physical Exam: Gen: well developed, well nourished, no distress Head: normal cephalic Lungs: clear to auscultation, good aeration Heart: normal rate and rhythm, normal S1S2, no significant murmur Abd: soft, no palpable masses, nontender to palpation; Extremities: straight back, no deformities noted on exam, able to move all four extremities Skin: dry flaky skin noted on right hand, patient believes may be related to new hand soap. LABS: No visits with results within 1 Day(s) from this visit. Latest known visit with results is: Abstract on 04/10/2024 Component Date Value Ref Range Status Gonorrhea/Chlamydia Screening 07/10/2022 abstracted Final Hepatitis C Screening 07/04/2022 abstracted Final HIV Screening 07/04/2022 abstracted Final Annual BMP Blood Test 09/17/2023 abstracted Final Cervical Cancer Screening: HPV 07/10/2022 positive, abstracted Final Pap smear 07/10/2022 negative, abstracted Final LDL/HDL Ratio 07/03/2022 3 0 - 4 Final Triglycerides 07/03/2022 102 0 - 150 mg/dL Final Cholesterol 07/03/2022 180 0 - 200 mg/dL Final HDL 07/03/2022 58 40 mg/dL Final LDL Cholesterol 07/03/2022 102 (A) 0 - 100 mg/dL Final ASSESSMENT: 39 year old female presenting with chief complaint of hemorrhoid ongoing for past two years. History is significant for onset of symptoms with and constipation. Reports stinging pain with bowel movements, but no blood in stool. She is requesting referral to gastroenterology. ICD-10-CM ICD-9-CM 1. Hemorrhoids, unspecified hemorrhoid type K64.9 455.6 Ambulatory referral to Gastroenterology 2. Rash R21 782.1 hydrocortisone 1 % ointment PLAN: Hemorrhoid - referral placed to gastroenterology. - advised to follow up in the meantime if symptoms worsen 2. Rash - Advised to try OTC cortisone 10. Patient requesting a prescription. Rx for hydrocortisone 1% ointment sent to pharmacy. - Advised to also keep skin moisturized using otc moisturizers such as eucerin or aquaphor. For this encounter, I personally performed, face to face and bzs-mbuh-qv-face services that include: - Medical appropriate examination - Care planning through shared decision making with counseling for plan of care, risk/benefit of care plan and follow-up recommendations - Documentation of clinical information in electronic health record. Orders Placed This Encounter Procedures Ambulatory referral to Gastroenterology Standing Status: Future Standing Expiration Date: 06/16/2025 Referral Priority: Routine Referral Type: Consultation Referral Reason: Specialty Services Required Requested Specialty: Gastroenterology Number of Visits Requested: 1 Treatment goals, plans and potential barriers to meeting goals was discussed and above noted care plan agreed upon by the patient/parent/guardian. Notes accessible to the patient on the [employer] online portal if enabled. documented in this encounter Plan of Treatment Upcoming Encounters Date Type Department Care Team (Late st Contact Info) Description 07/23/2024 2:40 PM EST Office Visit Gastroenterology - [address] [place] [address] Cris Quiles PA [address] [place] [address] [place] [address] 05/15/2025 3:45 PM EST Office Visit Adult Medicine - [place] [address] [place] [address] Samantha Winslow MD [address] [place] [address] Scheduled Referrals Name Type Priority Associated Diagnoses Order Schedule Ambulatory referral to Gastroenterology Outpatient Referral Routine Hemorrhoids, unspecified hemorrhoid type 1 Occurrences starting 06/16/2024 until 06/16/2025 documented as of this encounter Visit Diagnoses Diagnosis Hemorrhoids, unspecified hemorrhoid type- Primary Rash Rash and other nonspecific skin eruption documented in this encounter Additional Health Concerns Assessment Noted Time PHQ-9 Depression Total Score: 0 06/12/19 25 11:28 PM EST documented as of this encounter Care Teams Business Development Intern Relationship Specialty Start Date End Date Samantha Winslow MD [address] [place] [address] PCP - General 07/04/22 documented as of this encounter
--- OUTSIDE RECORDS SUMMARY | 2024-06-24 15:30 | XMS_ITS | Clinical Summary ---
Author Organization [facility] Address [address] [place] [address] Care Team Providers Care Business Continuity Consultant Name Role Phone Samantha Winslow MD Primary Care Provider Social History Tobacco Use Types Packs/Day Years Used Date Smoking Tobacco: Never Assessed Sex and Gender Information Value Date Recorded Sex Assigned at Female 07/04/2022 12:22 PM EST Gender Identity Female 07/04/2022 12:22 PM EST Sexual Orientation Not on file Job Start Date Occupation Industry Not on file Not on file Not on file Plan of Treatment Health Maintenance Due Date Last Done Comments Hepatitis B Vaccines (1 of 3 - 3-dose series) 1983 Hepatitis C Screening 1983 COVID-19 Vaccine (#1) 1983 Depression Screening 1995 Preventative Health Evaluation 2001 DTap / Tdap / Td (1 - Tdap) 2002 Cervical Cancer Screening (P ap Smear) 2004 Influenza Vaccine (#1) 2024 Pneumococcal Vaccine Aged Out No long er eligible based on patient's age to complete this topic RSV Ped < 20 months Aged Out No longe r eligible based on patient's age to complete this topic Care Teams Business Continuity Consultant Relationship Specialty Start Date End Date Samantha Winslow MD [address] [place] [id number] PCP - General Family Medicine 07/04/22
--- OUTSIDE RECORDS SUMMARY | 2024-06-24 15:30 | XMS_ITS | Clinical Summary ---
Author Organization [facility] [address] [facility] Address [address] [place] [address] Phone Care Team Providers Care Work Counselor Name Role Phone Samantha Winslow MD Primary Care Provider Allergies Active Allergy Reactions Criticality Noted Date Comments Other 09/17/2023 seasonal Medications Medication Sig Dispensed Refills Start Date End Date Status cyanocobalamin (VITAMIN B-12) 1,000 mcg tablet Take 1 tablet (1,000 mcg total) by mouth 1 (one) time each day. 09/18/2023 Active PNV no.153/FA/om3/dha/ep a/fish ( GUMMIES ORAL) NK-Vjr-MB-[place]-3 ( Gummies/DHA & FA) 0.4-32.5 MG Chew Tab- Take 2 Tablets by mouth daily. 06/21/2022 Active hydrocortisone 1 % ointmentIndications: Rash Apply topically 2 (two) times a day. 30 g 06/16/2024 06/16/2025 Active Active Problems Problem Noted Date Diagnosed Date Rh negative, antepartum 04/10/2024 Beta thalassemia trait 06/21/2022 Overview (04/10/2024): Carrier noted on [facility] testing 07/17/22- is negative Dichorionic diamniotic twin gestation 06/21/2022 Overview (04/10/2024): Early US for chorionicity Baseline (<20 weeks) HELLP labs ASA 81 mg for pre-eclampsia prevention Level 2 anatomy US Growth Q 4 weeks after anatomy US No additional testing if concordant (<10% discordance) Deliver 38-38 6/7 weeks Should have physician visit to discuss mode of delivery Advanced maternal age, 1st , first trim bay 06/21/2022 AMA (advanced maternal age) primigravida 35+, second trimester 06/21/2022 Overview (04/10/2024): Referral for NIPT if desired-ordered at OB w/u Level 2 US Weekly NST at 36 weeks Offer delivery at 39 weeks if >40 years old Uterine fibroid in 06/21/2022 Overview (04/10/2024): 8cm myometrial fundal fibroid asociated with 5.4cm fundal exophytic fibroid Encounters Date Type Department Care Team Description 06/16/2024 3:30 PM EST Office Visit Adult Medicine [address] [address] Andreina Layton PA Hemorrhoids, unspecified hemorrhoid type (Primary Dx); Rash 05/14/2024 3:00 PM EST Office Visit Adult Medicine [address] [address] Javi Goode PA Routine general medical examination at a health care facility (Primary Dx); History of anemia; Vitamin D deficiency; Encounter for screening mammogram for malignant neoplasm of breast from Last 3 Months Immunizations Name Administration Dates Next Due Tdap Tetanus diptheria acell ular pertussis (Boostrix; Adacel) 7yo and older 03/07/2023 Surgical History Surgery Date Site/Laterality Comments WISDOM TOOTH EXTRACTION Bilateral PROCEDURE: HISTORICAL WISDOM TEETH EXTRACTION MYOMECTOMY 03/18/2024 Medical History Medical History Date Comments Anemia DX:Anemia Beta thalassemia trait DX:Beta t halassemia trait Uterine fibroid DX:Uterine fibro id; COMMENT: noted on u/s 06/12/22 Type A blood, Rh negative DX:Typ e A blood, Rh negative Immunization, BCG DX:Immunizatio n, BCG; COMMENT: as a child Fibroids Family History Medical History Relation Name Comments Other: austism Brother Seizures Brother Asthma Father Diabetes Father Other: factor 5 Father Arthritis Mother Depression Mother Diabetes Mother Stroke Mother Other: gestational diabetes Sister Breast cancer Neg Hx Cancer of Small Bowel Neg Hx Colon cancer Neg Hx Kidney cancer Neg Hx Ovarian cancer Neg Hx Pancreatic cancer Neg Hx Uterine cancer Neg Hx Relation Name Status Comments Brother Father Mother Other Niece (Age 6 mn) spina bi fida Sister Social History Tobacco Use Types Packs/Day Years [...] care for your loved ones. For example, childrens club attendant or elderly care for an older adult? [...] file Not on file Not on file Obstetrics History Last Filed Vital Signs Vital Sign Reading [...] Mass Index 25.32 06/16/2024 3:28 PM EST Plan of Treatment Upcoming Encounters Date Type Department Care Team (Late st Contact Info) Description 07/23/2024 2:40 PM EST Office Visit Gastroenterology - [address] [place] [phone] Cris Quiles PA [address] [place] [address] 05/15/2025 3:45 PM EST Office Visit Adult Medicine - [place] [address] [place] [phone] Samantha Winslow MD [address] [place], [place] Health Maintenance Due Date Last Done Comments Breast Cancer Screening 1983 Pneumococcal Vaccine: Pediat rics (0 to 5 Years) and At-Risk Patients (6 to 64 Years) (1 of 2 - PCV) 1989 Hepatitis B Vaccines (1 of 3 - 19+ 3-dose series) 2002 COVID-19 Vaccine (2023-2 5 season) 2024 Influenza Vaccine (#1) 2024 Depression Screening 06/12/2025 06/12/2024 Social Influencers of Health Screening 06/12/2025 06/12/2024 Cholesterol Screening (Lipid Panel) 07/03/2027 07/03/2022 Cervical Cancer Screening: HPV 07/10/2027 07/10/2022 DTaP,Tdap,and Td Vaccines (2 - Td or Tdap) 03/07/2033 03/07/2023 HIV Screening Completed 07/04/2022 Hepatitis C Screening Completed 07/04/2022 HIB Vaccines Aged Out No longer eligi ble based on patient's age to complete this topic HPV Vaccines Aged Out No longer eligi ble based on patient's age to complete this topic Hepatitis A Vaccines Aged Out No long er eligible based on patient's age to complete this topic IPV Vaccines Aged Out No longer eligi ble based on patient's age to complete this topic MMR Vaccines Aged Out No longer eligi ble based on patient's age to complete this topic Meningococcal ACWY Vaccine Aged Out N o longer eligible based on patient's age to complete this topic RSV Immunization Patients Un carmina 20 months Aged Out No longer eligible b ased on patient's age to complete this topic Varicella Vaccines Aged Out No longer eligible based on patient's age to complete this topic Procedures Procedure Name Priority Date/Time Associated Diagnosis Comments HPV Routine 07/10/2022 HEPATITIS C SCREENING Routine 07/04/2022 HIV SCREENING Routine 07/04/2022 LIPID PANEL Routine 07/03/2022 from Last 3 Months or Most Recently Relevant to Health Maintenance Results * Cervical Cancer Screening: HPV (07/10/2022) Pathologist [facility] Cervical Cancer Screening: HPV positive, abstracted Historical Provider MD DANNIELLE CANALES E * HIV Screening (07/04/2022) [facility] HIV Screening abstracted Historical Provider MD DANNIELLE CANALES E * Hepatitis C Screening (07/04/2022) Pathologist [facility] Hepatitis C Screening abstracted Historical Provider MD DANNIELLE CANALES E * (ABNORMAL) Lipid panel (07/03/2022) [facility] LDL/HDL Ratio 3 0 - 4 Triglycerides 102 0 - 150 mg/dL Cholesterol 180 0 - 200 mg/dL HDL 58 40 mg/dL LDL Cholesterol 102(A) 0 - 100 mg/dL Blood Venous blood specimen / Unknown Historical Provider LAB BLOOD ORDERAB LES from Last 3 Months or Most Recently Relevant to Health Maintenance Care Teams Work Counselor Relationship Specialty Start Date End Date aSmantha Winslow MD [address] [place] [address] [phone] [facility] - General 07/04/22
== END 2024-06-24 14:35 | disposition home or self-care (01) ==
PROVIDERS: Physician Assistant Medical; Emergency Provider Emergency Medicine; PCP Family Medicine
DX: J10.1 Influenza due to other identified influenza virus with other respiratory manifestations (principal); R51.9 Headache, unspecified; R05.9 Cough, unspecified; Z03.818 Encounter for observation for suspected exposure to other biological agents ruled out
CPT/HCPCS: 0241U; 87651; 99282; 99283